=== PATIENT | female | born 1985 | race Caucasian/White ===

== ENCOUNTER 2018-07-28 09:49 | Inpatient (IN) | payer OTHER ==
[~2018-07-28] VITALS: Ht 160 cm; Wt 77.1 kg
[2018-07-28] MEDS ORDERED: PRENATAL TABLE1 EAC2 PO (10:23)
[2018-07-28] MEDS ORDERED: ZYRTEC10 M3 PO (10:23)
[2018-07-28] MEDS ORDERED: SYMBICORT 16010.2 GM (10:24)
[2018-07-28 12:12] LABS: ABSOLUTE BASOPHIL COUNT 0 /CUMM (0.0-0.2); ABSOLUTE EOSINOPHIL COUNT 0.1 /CUMM (0.0-0.7); ABSOLUTE GRANULOCYTE CT 5.6 /CUMM (1.4-6.5); ABSOLUTE LYMPH COUNT 1.4 /CUMM (1.2-3.4); ABSOLUTE MONOCYTE COUNT 0.5 /CUMM (0.10-0.60); BASOPHIL % 0.3 % (0.0-2.0); EOSINOPHIL % 0.9 % (0-5); GRANULOCYTE % 73.5 % (42.2-75.2); HEMATOCRIT 33.1 % (37-47); MEAN CORPUSCULAR HGB 30.3 PG (27.0-31.0); MEAN CORPUSCULAR HGB CONC 34.8 G/DL (33.0-37.0); MEAN PLATELET VOLUME 10.5 FL (7.4-10.4); PLATELET COUNT 187 /CUMM (130-400); RBC DISTRIBUTION WIDTH 12.8 % (11.5-14.5); WHITE BLOOD CELL COUNT 7.6 /CUMM (4.8-10.8)
[2018-07-30 01:56] VITALS: BP 138/74
[2018-07-30 08:11] LABS: ABSOLUTE BASOPHIL COUNT 0 /CUMM (0.0-0.2); ABSOLUTE EOSINOPHIL COUNT 0 /CUMM (0.0-0.7); ABSOLUTE GRANULOCYTE CT 10.1 /CUMM (1.4-6.5); ABSOLUTE LYMPH COUNT 1.1 /CUMM (1.2-3.4); ABSOLUTE MONOCYTE COUNT 0.5 /CUMM (0.10-0.60); BASOPHIL % 0.2 % (0.0-2.0); EOSINOPHIL % 0 % (0-5); GRANULOCYTE % 85.9 % (42.2-75.2); HEMATOCRIT 31.6 % (37-47); MEAN CORPUSCULAR HGB CONC 33.7 G/DL (33.0-37.0); MEAN CORPUSCULAR VOLUME 89.2 FL (81.0-99.0); MEAN PLATELET VOLUME 9.9 FL (7.4-10.4); PLATELET COUNT 156 /CUMM (130-400); RBC DISTRIBUTION WIDTH 13.1 % (11.5-14.5); RED BLOOD CELL CT 3.55 /CUMM (4.20-5.40)
[2018-07-30] MEDS ORDERED: VITAFOL ULTRA1 EACH PO (09:44)
[2018-07-30] MEDS ORDERED: PROVENTIL HFA6.7 GM (09:47)
[2018-07-30 10:23] LABS: WHITE BLOOD CELL COUNT 11.7 /CUMM (4.8-10.8)
--- NOTE | 2018-07-30 17:11 | History & Physical Pre-Op ---
General Information and HPI History of Present Illness: 33-year-old 3 para 0 LMP 10/28/2017 EDC 08/04/2018 LMP 10/28/2017 EDC at 39 weeks gestation with known marginal insertion of the umbilical cord into the placenta who is admitted for induction of labor.at 39 weeks gestation with known marginal insertion of the umbilical cord into the placenta who is admitted for induction of labor. care has been completed care has been complete Maxwell score low and therefore given misoprostol the shape score low and therefore given misoprostol ripening. This morning she is 4 cm dilated and was given Pitocin Morning she is 4 cm dilated and was given Pitocin induction induction she progressed to full she progressed to full dilation and developed severe variables upon dilation and developed severe variables upon pushing. Taken to OR for primary Taken to OR for primary rushing. ripening. Allergies/Medications Allergies: Coded Allergies: No Known Allergies (07/28/18) Home Med list Albuterol Sulfate (Proventil Hfa) 90 MCG HFA.AER.AD asthma (Reported) Budesonide/Formoterol Fumarate (Symbicort 160-4.5 Mcg Inhaler) 160 MCG-4.5 MCG/ ACTUATION HFA.AER.AD asthma (Reported) Cetirizine HCl (Zyrtec) 10 MG TABLET 1 TAB PO DAILY allergies (Reported) Vit No.130/Iron/FA ( Tablet) 27 MG IRON-800 MCG TABLET 1 TAB PO DAILY (Reported) Past History Medical History Isolation History: Standard Surgical History Pertinent Surgical History: none Past Family/Social History Psychosocial History Smoking Status: Never Smoked Review of Systems Review of Systems Constitutional: Reports: no symptoms. EENTM: Reports: no symptoms. Cardiovascular: Reports: no symptoms. Respiratory: Reports: no symptoms. GI: Reports: no symptoms. Genitourinary: Reports: no symptoms. Musculoskeletal: Reports: no symptoms. Skin: Reports: no symptoms. Neurological/Psychological: Reports: no symptoms. Hematologic/Endocrine: Reports: no symptoms. Immunologic/Allergic: Reports: no symptoms. All Other Systems: Reviewed and Negative Exam & Diagnostic Data Last 24 Hrs of Vital Signs/I&O Vital Signs Date Time Temp Pulse Resp B/P B/P Pulse O2 O2 Flow FiO2 Mean Ox Delivery Rate 07/30 0156 138/74 Physical Exam: HEENT: Normocephalic atraumatic Chest: Clear to auscultation bilaterally Cardiovascular: Normal S1-S2 Abdomen: HEENT: Normocephalic atraumatic Abdomen: Gravid cephalic estimated weight 6-1/2 pounds Gravid cephalic estimated weight 6-1/2 pounds Extremities: No clubbing cyanosis or edemaExtremities: No clubbing cyanosis or edema Assessment/Plan Assessment/Plan: Nonreassuring heart rate testing Plan: Primary Plan:Nonreassuring heart rate testing As Ranked By This Provider Problem List: 1.
--- NOTE | 2018-07-30 17:14 | Operative Report ---
Operative/Inv Procedure Report Surgery Date: 07/29/18 Name of Procedure: Primary Pre-Operative Diagnosis: Nonreassuring heart rate testing Post-Operative Diagnosis: Same Estimated Blood Loss: 650 Surgeon/Honeycomb Decapper: Mikey Wilson MD,Kade Rabago MD Anesthesia: epi Operative/Procedure Note Note: The patient was brought to the operating room placed on the OR table in dorsal supine position. Her epidural anesthetic was bolused and she was rechecked. Her abdomen was prepped and draped in usual sterile fashion. A Omer catheter was previously inserted and was draining clear yellow urine. Venodyne boots were placed and activated prior to surgery. A Pfannenstiel skin incision was made with a scalpel and taken down to the layer of the fascia. The fascia was nicked in the midline and extended bilaterally. Underlying rectus muscles were midline and the peritoneal cavity was entered bluntly. A bladder blade was inserted to protect the bladder from the operative field. A bladder flap was created using Metzenbaum scissors. A low transverse uterine incision was made with a scalpel and the cavity was opened and extended. A live-born male infant was delivered atraumatically and handed off to the waiting finish repair worker. Placenta was then manually removed. The uterus was very rice and wiped clean with a wet lap sponge. The uterine incision was closed in 2 layers of 0 Polysorb the second indicating the first. At the left ankle there was some bleeding noticed with 2 interrupted sutures of 0 Polysorb were placed to good effect. The abdomen and pelvis were copiously irrigated rectus muscles were reapproximated in a mattress suture of 2-0 Polysorb. Fascia was closed using #1 Polysorb in a running nonlocking fashion. Subcutaneous tissues were irrigated and coagulated were needed the skin was closed using shena. A dry sterile dressing was applied to the wound. The patient was sent to recovery in good condition. All needle, sponge, management counts were correct at the end of the procedure 4.
--- NOTE | 2018-07-30 17:14 | PN- Post Delivery/GYN ---
Subjective Subjective: No complaints Review of Systems: Negative Objective Last 24 Hrs of Vital Signs/I&O Vital Signs Date Time Temp Pulse Resp B/P B/P Pulse O2 O2 Flow FiO2 Mean Ox Delivery Rate 07/30 0156 138/74 Physical Exam: Abdomen soft nontender nondistended Incision clean dry and intact Extremities nontender Assessment/Plan Assessment/Plan Status post postop day 1 patient is stable Plan: HECTOR Omer increase activity advance diet patient and are undecided regarding circumcision Problem List: 1.
--- NOTE | 2018-07-31 10:08 | PN- OBGYN ---
Surgical Brief Attending Note Brief Attending Note: Seen and evaluated Doing well Breast feeding without issue Passing flatus Denies nausea BP 138/74 Afebrile Lungs clear Abdomen soft fundus firm and incision intact with shena Extremity. 1-2+ edema. Negative baron's Neuro. Aox3 Intact motor and sensory findings Meds. Lovenox WBC 11.7 Hct 31.6 POD#2 s/p Csection for failed induction of labor ID Afebrile. GI. Tolerating diet VTE prophylaxis. Ambulation and lovenox Wound care instructions reviewed Discussed Tdap and Influenza vaccines. I will order prior to her planned dc tomorrow. Breast feeding counseling reviewed.
[2018-08-01] MEDS ORDERED: Motrin PO (09:15)
[2018-08-01] MEDS ORDERED: [UNRECOGNIZED DRUG - OTHER] IM (09:25)
--- NOTE | 2018-08-01 09:37 | Surgical Discharge Summary ---
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 Home Who Do You Live With? Spouse Services at Home: None What is Your Primary Language? Trinidadian Tobacco History: NA ETOH Use: denies use Illicit Drug Use History: na Review of Systems: Denies Nausea Denies vomiting Denies dyspnea Physical Exam: Aox3 Afebrile and vitals stable per paper record Lungs clear Abdomen soft and nondistended and fundus firm Wound intact with shena Extr. No homans and 1-2+ edema Neuro intact grossly Hospital Course Course Attending Physician: Kade Castro MD Primary Care Physician: Clyde HAYNES,[facility] Hospital Course: Admitted for induction at 39 weeks. Progressed to 10 cm however had nonreassuring status Underwent csection. Received rhogam secondary to Rh negative Complications: None Allergies: Coded Allergies: No Known Allergies (07/28/18) Significant Procedures: Induction of labor Low transverse csection Rhogam and influenza vaccines Pertinent Lab Results: Hct 31.6 Rh negative Negative Kleihauer test Urine culture negative Disposition Summary Disposition Principal Diagnosis: Nonreassuring status Additional Diagnosis: Asthma Allergies Discharge Disposition: home or self care Discharge Instructions General Discharge Information Code Status: Full Code Patient's Diet: Regular Patient's Activity: As tolerated and no heavy lifting Follow-Up Instructions/Appts: Thursday08/04/18 at 0900 at [facility] for staple removal 7-10 days for assessment Medications at Discharge Discharge Medications: Continue taking these medications: Vit No.130/Iron/FA ( Tablet) 27 MG IRON-800 MCG TABLET 1 Tablet ORAL DAILY Cetirizine HCl (Zyrtec) 10 MG TABLET 1 Tablet ORAL DAILY Budesonide/Formoterol Fumarate (Symbicort 160-4.5 Mcg Inhaler) 160 MCG-4.5 MCG/ ACTUATION HFA.AER.AD Albuterol Sulfate (Proventil Hfa) 90 MCG HFA.AER.AD Qty = 7 Start taking the following new medications: [Motrin] 800 Milligram ORAL EVERY SIX HOURS NEEDED as needed for UTERINE CRAMPING No Refills Tdap Vaccine (Adacel Tdap Vial) 0.5 ML VIAL 0.5 0.5ML INTRAMUSC GIVE ONCE Qty = 1 No Refills Instructions: Please administer at pharmacy. Thank you Copies To: Mikey Wilson MD,Kade Campos MD Review Statement Attending Statement Attending MD Statement: examined this patient, discussed with family, discussed w/nursing Attending Assessment/Plan: Breast feeding counseling provided Wound care counseling provided preeclampsia warning signs reviewed VTE counseling provided
== END 2018-08-01 13:35 | DRG 540 ==
LOC: GNO 09:49
PROVIDERS: Obstetrics & Gynecology
PROC: 10D00Z1 Extraction of Products of Conception, Low, Open Approach (ICD-10-PCS; principal; 2018-07-30)
PROC: 3E0P7VZ Introduction of Hormone into Female Reproductive, Via Natural or Artificial Opening (ICD-10-PCS; principal; 2018-07-30)
DX: O76 Abnormality in fetal heart rate and rhythm complicating labor and delivery (principal); O43.123 Velamentous insertion of umbilical cord, third trimester; Z3A.39 39 weeks gestation of pregnancy; Z37.0 Single live birth
CPT/HCPCS: GNOP; GNOS; 36415; 81001; 87086; J0690; J1170; J1885; J2790; J7120; Q2036